=== PATIENT | female | born 1990 | race Caucasian/White ===

== ENCOUNTER 2022-01-02 22:51 | Emergency (ER) | payer BC ==
[2022-01-02 23:16] VITALS: BP 108/58; PULSE 86
[2022-01-02] MEDS ORDERED: cefTRIAXone 1 GM Vial IM ONE (23:24)
[2022-01-02] MEDS ORDERED: Lidocaine 1% 5 ML VIAL ONE (23:32)
[2022-01-02] MEDS ORDERED: traMADol 50 MG Tab PO ONE (23:42)
[2022-01-02] MEDS ORDERED: Ketorolac 30 MG/ML SDV IM ONE (23:42)
[2022-01-02] MEDS ORDERED: Phenazopyridine 95 MG Tab ONE (23:52)
[2022-01-03] MEDS ORDERED: Phenazopyridine 95 MG Tab PO ONE (23:37)
== END 2022-01-03 00:10 | disposition home or self-care (01) ==
LOC: LL.ED 22:51
DX: N39.0 Urinary tract infection, site not specified (principal); F17.210 Nicotine dependence, cigarettes, uncomplicated; Z79.899 Other long term (current) drug therapy
CPT/HCPCS: 81001; 81025; 87086; 96372; 99283; 99284; A9270-GY; J0696; J1885

== ENCOUNTER 2024-08-30 03:06 | Emergency (ER) | payer BC ==
[2024-08-30 03:22] VITALS: BP 111/59; PULSE 69
== END 2024-08-30 04:19 | disposition home or self-care (01) ==
LOC: LL.ED 03:06
DX: S89.91XA Unspecified injury of right lower leg, initial encounter (principal); X50.1XXA Overexertion from prolonged static or awkward postures, initial encounter; Y93.21 Activity, ice skating
CPT/HCPCS: 73562-RT; 99283